=== PATIENT | male | born 1985 ===

== ENCOUNTER → 2018-05-20 23:13 | Outpatient (REF) | payer OTHER, SELFPAY ==
[2018-05-21 00:53] LABS: Hematocrit 50.8 % (41-53); Hemoglobin 17.5 g/dL (13.5-17.5); Mean Corpuscular HGB Conc 34.5 % (30-36); Mean Corpuscular Hemoglobin 29.7 PG (26-34); Platelet Count 324 X10^3/uL (150-400); Red Cell Distribution Width 13.6 % (11.6-14.8); White Blood Cell Count 7.1 X10^3/uL (4.5-11.0)
[2018-05-21 01:07] LABS: Add Manual Diff / Slide Review YES
[2018-05-21 07:45] LABS: Morphology Comment Normal Morphology; Neutrophils Absolute Manual 3124 /uL (3000-5900); Total Cells Counted 100
[2018-05-23 15:19] LABS: Sex Hormone Binding Globulin 19 nmol/L (10-50)
[2018-05-23 19:29] LABS: Estradiol 43 pg/mL (< 40)
[2018-05-24 15:22] LABS: PSA Total 1.12 ng/mL (< 4.01)
[2018-05-25 13:37] LABS: Testosterone Free 72.3 pg/mL (35.0-155.0); Testosterone Total 406 ng/dL (250-1100)
== END ==
LOC: LAB 23:13
PROVIDERS: Visit Provider Naturopath
DX: E29.1 Testicular hypofunction (principal)
CPT/HCPCS: 36415; 82670; 84153; 84154; 84270; 84402; 84403; 85025